=== PATIENT | female | born 1990 | race African-American/Black ===

== ENCOUNTER 2017-03-16 21:47 | Emergency (ER) | payer OTHER ==
[~2017-03-16 21:47] MED LIST: BACTRIM DS TABL1 TA1 PO; BIRTH CONTROL IN ARM; INDOCIN PO; IRON325 ( 651 PO; NO MEDICATIONS; TYLENOL #3 PO; VOLTAREN75 MG PO; ZOFRAN ODT4 MG PO; ZOFRANODT PO; ZOFRANODT SL
[2017-03-16 22:17] LABS: URINE SOURCE CLEAN CATCH
[2017-03-16 22:20] LABS: URINE APPEARANCE HAZY; URINE BILIRUBIN NEG (NEG); URINE BLOOD 3+ (NEG); URINE COLOR YELLOW; URINE GLUCOSE NEG (NORM); URINE KETONE NEG (NEG); URINE LEUKOCYTE ESTERASE TRACE (NEG); URINE NITRATE NEG (NEG); URINE PROTEIN NEG (NEG); URINE SPECIFIC GRAVITY <=1.005 (1.003-1.035)
[2017-03-16 22:26] LABS: MICRO INDICATED? YES
[2017-03-16 22:27] LABS: CULTURE INDICATED? YES; URINE BACTERIA NEG (NEG); URINE RBC 200-300 /[HPF] (0-2); URINE SQUAMOUS EPITHELIAL CELL MODERATE /[HPF]
[2017-03-16 22:47] LABS: EOSINOPHIL# 0.3 X10e3 (0-0.7); HEMOGLOBIN 9.6 gm/dL (12.0-16.0); LYMPHOCYTE# 1.4 X10e3 (1.0-3.5); MEAN PLATELET VOLUME 9.1 FL (6.5-11.5); RED BLOOD COUNT 4.81 X10e (3.90-5.30)
[2017-03-16 22:55] LABS: BASOPHIL% 0.4 % (0-2.5); EOSINOPHIL% 3.6 % (0.0-7.0); HEMATOCRIT 31.8 % (35.0-45.0); LYMPHOCYTE% 19.6 % (17.0-45.0); MEAN CELL VOLUME 66.2 FL (83-96); MEAN CORPUSCULAR HGB CONC 30.3 g/dL (30-36); MONOCYTE# 0.8 X10e3 (0-1.0); MONOCYTE% 11.9 % (3.0-12.0); NEUTROPHIL# 4.6 X10e3 (1.5-7.1); NEUTROPHIL% 64.5 % (40-75); PLATELET COUNT 216 X10e3 (140-420); RED CELL DISTRIBUTION WIDTH 19.6 % (11.0-15.5); WHITE BLOOD COUNT 7.1 X10e3 (4.0-10.5)
[2017-03-16 22:56] LABS: DIFF IND NO
== END 2017-03-16 23:41 | disposition home or self-care (01) ==
LOC: SED 21:47
PROVIDERS: Emergency Medicine
DX: R10.2 Pelvic and perineal pain (principal); Z88.0 Allergy status to penicillin
CPT/HCPCS: 36415; 81003; 84703; 85025; 87086; 96372; 99283; J1885